=== PATIENT | female | born 1955 | race Hispanic/Latino ===

== ENCOUNTER 2018-06-16 08:21 | Day surgery (SDC) | payer BC ==
[2018-06-16] MEDS ORDERED: Propofol 10 mg/ml Inj (20 ML) ONE (09:22)
[2018-06-16] MEDS ORDERED: Midazolam 2 MG/2 ML VIAL ONE (09:26)
[2018-06-16] MEDS ORDERED: Sodium Chloride 0.9% 1,000 ML IV SCH (11:15)
[2018-06-16 13:38] VITALS: BP 136/44; PULSE 65; RESP 18; TEMP 97.8; O2SAT 99
== END 2018-06-16 13:10 | disposition home or self-care (01) ==
LOC: ENDO 08:21
PROVIDERS: ATTEND Internal Medicine Gastroenterology
DX: K52.832 Lymphocytic colitis (principal); D12.8 Benign neoplasm of rectum; K57.30 Diverticulosis of large intestine without perforation or abscess without bleeding; K64.8 Other hemorrhoids; K21.0 Gastro-esophageal reflux disease with esophagitis; K29.70 Gastritis, unspecified, without bleeding; K29.80 Duodenitis without bleeding; B96.81 Helicobacter pylori [H. pylori] as the cause of diseases classified elsewhere
CPT/HCPCS: 43239; 45380; 45385; 88305; 88312; 88342; J2001; J2250; J2704; J7030; J7040

== ENCOUNTER 2018-07-16 21:40 | Emergency (ER) | payer BC ==
[2018-07-16 23:19] LABS: PH,URINE 6.5 (4.7-8.0); URINE BILIRUBIN NEGATIVE (NEGATIVE); URINE BLOOD NEGATIVE (NEGATIVE); URINE GLUCOSE (UA) NEGATIVE (NEGATIVE); URINE LEUKOCYTE ESTERASE NEGATIVE Leu/uL (NEGATIVE); URINE PROTEIN NEGATIVE mg/dL (<30 mg/dL); URINE UROBILINOGEN 0.2 E.U./dL (<1 E.U./dL)
[2018-07-16 23:20] LABS: URINE APPEARANCE CLEAR (CLEAR); URINE COLOR STRAW (YELLOW)
[2018-07-16 23:36] VITALS: RESP 18; O2SAT 96
--- NOTE | 2018-07-16 23:44 | ED PDOC ---
Arrival/HPI <Igor Murphy - Last Filed: 07/16/18 23:52> - General Historian: Patient - History of Present Illness Narrative History of Present Illness (Text): 07/16/18 23:41 63-year-old female presents today with concern for uterine prolapse. Patient states she was getting in the shower today she felt as if part of her vaginal tissue was coming out side of the vaginal opening. Patient states while in the emergency room she does not see or feel that sensation of protruding uterus. Patient states she is complaining of occasional dysuria. Patient states she was having a pinching sensation in the vaginal area. Patient denies chest pain or shortness of breath. She denies dizziness or weakness. She denies any abdominal pain. No nausea vomiting diarrhea or constipation. She denies fevers or chills. No other complaints <Ashley Macias - Last Filed: 07/16/18 23:56> - General Chief Complaint: Female Genitourinary Time Seen by Provider: 07/16/18 22:02 Past Medical History - Infectious Disease Hx of Infectious Diseases: None - Hematological/Oncological Hx Blood Transfusions: No - Musculoskeletal/Rheumatological Hx Musculoskeletal Disorders: No - Psychiatric Hx Emotional Abuse: No Hx Physical Abuse: No Hx Substance Use: No - Anesthesia Hx Anesthesia Reactions: No Hx Malignant Hyperthermia: No - Suicidal Assessment Feels Threatened In Home Enviroment: No <Ashley Macias - Last Filed: 07/16/18 23:56> Family/Social History Family/Social History: No Known Family HX Smoking Status: Never Smoked Hx Alcohol Use: Yes (SOCIAL) Hx Substance Use: No <Ashley Macias - Last Filed: 07/16/18 23:56> Allergies/Home Meds <Igor Murphy - Last Filed: 07/16/18 23:52> <Ashley Macias - Last Filed: 07/16/18 23:56> Allergies/Adverse Reactions: Allergies No Known Allergies Allergy (Verified 06/09/18 09:58) Home Medications: Home Meds Medication Instructions Recorded Confirmed Amoxicillin [Amoxil 500 mg Cap] 2 tab PO BID 07/16/18 07/16/18 Clarithromycin [Biaxin Filmtab] 500 mg PO BID 07/16/18 07/16/18 Lansoprazole [Prevacid] 30 mg PO BID 07/16/18 07/16/18 Mesalamine [Lialda] 1 tab PO HS 07/16/18 07/16/18 Mesalamine [Lialda] 2 tab PO AMHS 07/16/18 07/16/18 Review of Systems - Review of Systems Constitutional: absent: Fatigue, Fevers Respiratory: absent: SOB, Cough Cardiovascular: absent: Chest Pain, Palpitations Gastrointestinal: absent: Abdominal Pain, Nausea, Vomiting Genitourinary Female: Dysuria. absent: Frequency, Hematuria, Vaginal Bleeding, Vaginal Discharge Musculoskeletal: absent: Arthralgias, Back Pain, Neck Pain Skin: absent: Rash, Pruritis Neurological: absent: Headache, Dizziness Psychiatric: absent: Anxiety, Depression <Ashley Macias - Last Filed: 07/16/18 23:56> Physical Exam Vital Signs Temp Pulse Resp BP Pulse Ox 07/16/18 23:21 98 F 68 18 104/62 96 07/16/18 22:21 98.2 F 75 18 127/62 96 <Igor Murphy - Last Filed: 07/16/18 23:52> Vital Signs Reviewed: Yes Vital Signs Temp Pulse Resp BP Pulse Ox 07/16/18 23:21 98 F 68 18 104/62 96 07/16/18 22:21 98.2 F 75 18 127/62 96 Temperature: Afebrile Blood Pressure: Normal Pulse: Regular Respiratory Rate: Normal Appearance: Positive for: Well-Appearing, Non-Toxic, Comfortable Pain Distress: None Mental Status: Positive for: Alert and Oriented X 3 - Systems Exam Head: Present: Atraumatic Neck: Present: Normal Range of Motion Respiratory/Chest: Present: Clear to Auscultation, Good Air Exchange. No: Respiratory Distress, Accessory Muscle Use Cardiovascular: Present: Regular Rate and Rhythm, Normal S1, S2. No: Murmurs Abdomen: No: Tenderness, Distention, Rebound, Guarding Genitourinary/Pelvic Exam: Present: Normal External Genitalia, Other (chaparoned by dr. murphy). No: Vaginal Bleeding Back: Present: Normal Inspection Neurological: Present: GCS=15 Skin: Present: Warm, Dry, Normal Color. No: Rashes Psychiatric: Present: Alert, Oriented x 3 <Ashley Macias - Last Filed: 07/16/18 23:56> Medical Decision Making - Lab Interpretations Lab Results: Urine Color Straw (YELLOW) 07/16/18 23:12 Urine Appearance Clear (CLEAR) 07/16/18 23:12 Urine pH 6.5 (4.7-8.0) 07/16/18 23:12 Ur Specific Tamms <= 1.005 (1.005-1.035) 07/16/18 23:12 Urine Protein Negative mg/dL (<30 mg/dL) 07/16/18 23:12 Urine Glucose (UA) Negative mg/dL (NEGATIVE) 07/16/18 23:12 Urine Ketones Negative mg/dL (NEGATIVE) 07/16/18 23:12 Urine Blood Negative (NEGATIVE) 07/16/18 23:12 Urine Nitrate Negative (NEGATIVE) 07/16/18 23:12 Urine Bilirubin Negative (NEGATIVE) 07/16/18 23:12 Urine Urobilinogen 0.2 E.U./dL (<1 E.U./dL) 07/16/18 23:12 Ur Leukocyte Esterase Negative Ta/uL (NEGATIVE) 07/16/18 23:12 <Igor Murphy - Last Filed: 07/16/18 23:52> ED Course and Treatment: 07/16/18 23:44 patient is nontoxic well-appearing in no distress with stable vital signs. Patient presenting with concern for possible uterine prolapse. On examination performed by myself and Dr. Murphy there was no evidence of uterine prolapse. Patient states symptoms have improved while in the emergency room. UA within normal limits. We will discharge the patient home to follow-up with her gas engine repairer within the next 2 days. I've advised immediate return if symptoms worsen persist or if new concerning symptoms develop Patient verbalizes understanding of discharge instructions and need for immediate followup. all aspects of this case were discussed the attending of record. Impression: Vaginal burning Follow-up with the gas engine repairer within the next 2 days Return immediately if symptoms worsen persist or if new concerning symptoms develop - Lab Interpretations Lab Results: Urine Color Straw (YELLOW) 07/16/18 23:12 Urine Appearance Clear (CLEAR) 07/16/18 23:12 Urine pH 6.5 (4.7-8.0) 07/16/18 23:12 Ur Specific Tamms <= 1.005 (1.005-1.035) 07/16/18 23:12 Urine Protein Negative mg/dL (<30 mg/dL) 07/16/18 23:12 Urine Glucose (UA) Negative mg/dL (NEGATIVE) 07/16/18 23:12 Urine Ketones Negative mg/dL (NEGATIVE) 07/16/18 23:12 Urine Blood Negative (NEGATIVE) 07/16/18 23:12 Urine Nitrate Negative (NEGATIVE) 07/16/18 23:12 Urine Bilirubin Negative (NEGATIVE) 07/16/18 23:12 Urine Urobilinogen 0.2 E.U./dL (<1 E.U./dL) 07/16/18 23:12 Ur Leukocyte Esterase Negative Ta/uL (NEGATIVE) 07/16/18 23:12 <Ashley Macias - Last Filed: 07/16/18 23:56> - PA / TECHNICAL MGR / Resident Statement ROBERT has reviewed & agrees with the documentation as recorded. ROBERT has examined the patient and agrees with the treatment plan. <Igor Murphy - Last Filed: 07/16/18 23:52> Disposition/Present on Arrival <Igor Murphy - Last Filed: 07/16/18 23:52> - Present on Arrival Any Indicators Present on Arrival: No History of DVT/PE: No History of Uncontrolled Diabetes: No Urinary Catheter: No History of Decub. Ulcer: No History Surgical Site Infection Following: None - Disposition Have Diagnosis and Disposition been Completed?: Yes Disposition Time: 23:42 Patient Plan: Discharge <Ashley Macias - Last Filed: 07/16/18 23:56> - Disposition Diagnosis: Vaginal burning Disposition: HOME/ ROUTINE Patient Problems: Current Active Problems Problem Status Onset Vaginal burning Acute Condition: GOOD Additional Instructions: follow-up with the gas engine repairer within the next 2 days Return immediately if symptoms worsen persist or if new concerning symptoms develop Referrals: Logn Henry MD [Staff Provider] - Follow up with primary Brandon Maharaj DO [Staff Provider] - Follow up with primary Deanne Horne MD [Staff Provider] - [facility] [Outside] - Follow up with primary Marsha Guan MD [Medical Doctor] - Follow up with primary [facility] [Outside] - Follow up with primary Forms: [employer] ([place])
[2018-07-17 00:58] VITALS: BP 111/65; PULSE 79; TEMP 98.1
== END 2018-07-16 23:55 | disposition home or self-care (01) ==
LOC: ED 21:40
DX: N89.8 Other specified noninflammatory disorders of vagina (principal)